=== PATIENT | female | born 1960 | race Caucasian/White ===

== ENCOUNTER 2017-06-15 06:38 | Day surgery (SDC) | payer OTHER ==
[2017-06-15] MEDS ORDERED: Propofol 200 MG/20 ML SDV ONE (06:55)
[2017-06-15] MEDS ORDERED: fentaNYL 100 MCG/2 ML SDV ONE (06:55)
[2017-06-15] MEDS ORDERED: Midazolam 1 MG/ML 2 ML SDV ONE (06:56)
[2017-06-15] MEDS ORDERED: Sodium Chloride 0.9% 1,000 ML IV SCH (07:00)
[2017-06-15] MEDS ORDERED: Ondansetron 4 MG/2 ML SDV ONE (07:56)
[2017-06-15 09:03] VITALS: BP 120/85
--- NOTE | 2017-06-15 09:20 | PROC ---
DATE OF PROCEDURE: 06/15/2017 INDICATION: Jennifer is a 57-year-old female who has had significant abdominal pain whenever she eats. The pain is severe enough where she wants to find out what is happening. The risks and benefits were explained to the patient and was taken to the OR. ANESTHESIA: Given by nurse portable machine cutter. PROCEDURE IN DETAIL: During the procedure, we used 2 mg of Versed, 2 mL of fentanyl, and 200 mg of propofol. The Olympus 180 scope was used and was placed into the pharynx and esophagus without difficulty and into the stomach, revealed no abnormality. The pylorus was identified, and the tube was advanced into the first and second part of the duodenum. Upon retraction of the tube, noted no duodenal erythema and no abnormality. The tube was brought back into the antrum area. There was mild erythema evident. Biopsy was done for Helicobacter pylori, Farida. We had good observation of the greater and lesser curvature. Then, the tube was retroflexed into the fundus, which revealed no abnormalities. Air was withdrawn from the stomach. The GE junction was identified. We closely observed the mucosa of the esophagus, which was unremarkable, and the vocal cords moved symmetrically. The tube was removed, and the patient tolerated the procedure well. PREOPERATIVE DIAGNOSIS: Abdominal pain. POSTOPERATIVE DIAGNOSIS: Mild antral mucosa erythema. Biopsy pending for Helicobacter pylori. PLAN: I will speak to the patient in the office once the biopsy report is completed. Sacha Gross MD /[id number]
== END 2017-06-15 09:30 | disposition home or self-care (01) ==
LOC: JP.SDS 06:38
PROVIDERS: ATTEND Internal Medicine
DX: K31.89 Other diseases of stomach and duodenum (principal)
CPT/HCPCS: 43239; 87081; J2250; J2405; J2704; J3010; J7040

== ENCOUNTER 2017-07-21 10:43 | Emergency (ER) | payer OTHER ==
[2017-07-21 11:03] VITALS: BP 152/82
[2017-07-21] MEDS ORDERED: Alum Hydrox/Mag Hydrox/Simeth 15 ML, Lidocaine 2% 15 ML PO ONE ×2 (11:04)
--- NOTE | 2017-07-21 12:06 | EDM.PDOC ---
ED HPI GENERAL MEDICAL PROBLEM - General Chief Complaint: Abdominal Pain Stated Complaint: UPPER STOMACH PAIN Time Seen by Provider: 07/21/17 10:57 Source of Information: Reports: Patient History Limitations: Reports: No Limitations - History of Present Illness INITIAL COMMENTS - FREE TEXT/NARRATIVE: Had acute onset of epigastric pain this morning after getting up drinking some coffee and tea. Describes the pain as burning, without radiation, Tried some gasex without relief. She has been seen previously for this having had an EGD last month showing mild gastritis. Recent CT of abdomen was normal. Currently taking nexium daily. Denies N/V. Having regular bowel movements Onset: Today, Sudden Location: Reports: Abdomen Quality: Reports: Burning Improves with: Reports: None Mid-Anterior Abdomen Pain Score (Numeric/FACES): 4 - Related Data Allergies Allergy/AdvReac Type Severity Reaction Status Date / Time bupropion HCl Allergy Hives Verified 07/21/17 11:03 [From Wellbutrin] Sulfa (Sulfonamide AdvReac Hives Verified 07/21/17 11:03 Antibiotics) Home Meds: Home Meds Omeprazole 20 mg PO DAILY 03/14/15 [History] Sertraline [Zoloft] 100 mg PO DAILY 03/14/15 [History] Cyclobenzaprine [Flexeril] 10 mg PO Q8H PRN #0 tablet 05/15/16 [Rx] Ondansetron [Zofran ODT] 4 mg PO Q4H PRN #30 tab.dis 05/15/16 [Rx] metroNIDAZOLE [Metronidazole] 500 mg PO TID PRN 06/11/17 [History] Sucralfate [Carafate] 1 gm PO ACBED 30 Days #120 tab 07/21/17 [Rx] Past Medical History HEENT History: Reports: Impaired Vision Respiratory History: Reports: Sleep Apnea Gastrointestinal History: Reports: Diverticulosis Genitourinary History: Reports: None 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: Musculoskeletal History: Reports: Fracture Psychiatric History: Reports: Depression Endocrine/Metabolic History: Reports: Obesity/BMI 30+ - Infectious Disease History Infectious Disease History: Reports: Chicken Pox - Past Surgical History HEENT Surgical History: Reports: LASIK GI Surgical History: Reports: Colon, Colonoscopy, Hernia, Abdominal, Hernia Repair/Other Female Surgical History: Reports: Breast Reduction, Tubal Ligation Endocrine Surgical History: Reports: None Musculoskeletal Surgical History: Reports: None Social & Family History - Family History Cardiac: Reports: Hypertension Respiratory: Reports: Sleep Apnea : Reports: Diabetic Nephropathy OBGYN: Reports: Musculoskeletal: Reports: Arthritis Endocrine/Metabolic: Reports: Diabetes, Type I - Tobacco Use Smoking Status *Q: Unknown Ever Smoked Years of Tobacco use: 10 Packs/Tins Daily: 1 Used Tobacco, but Quit: Yes Month Tobacco Last Used: 2006 Second Hand Smoke Exposure: No - Caffeine Use Caffeine Use: Reports: Coffee, Soda, Tea - Alcohol Use Days Per Week of Alcohol Use: 0 - Recreational Drug Use Recreational Drug Use: No ED ROS GENERAL - Review of Systems Review Of Systems: See Below Constitutional: Reports: No Symptoms HEENT: Reports: No Symptoms Respiratory: Reports: No Symptoms Cardiovascular: Reports: No Symptoms GI/Abdominal: Reports: Abdominal Pain, Decreased Appetite, Distension. Denies: Black Stool, Bloody Stool, Constipation, Diarrhea, Hematemesis, Hematochezia, Melena, Nausea, Vomiting : Reports: No Symptoms Musculoskeletal: Reports: No Symptoms Skin: Reports: No Symptoms ED EXAM, GI/ABD - Physical Exam Exam: See Below Exam Limited By: No Limitations General Appearance: Alert, Anxious, Mild Distress Respiratory/Chest: No Respiratory Distress, Lungs Clear, Normal Breath Sounds Cardiovascular: Normal Peripheral Pulses, Regular Rate, Rhythm, No Edema, No Murmur GI/Abdominal Exam: Soft, Tender (ove mid-epigastric area). No: Guarding, Rebound Course - Vital Signs Last Recorded V/S: Last Vital Signs Temp 36.8 C 07/21/17 10:54 Pulse 90 07/21/17 10:54 Resp 18 07/21/17 10:54 BP 152/82 H 07/21/17 10:54 Pulse Ox 98 07/21/17 10:54 - Orders/Labs/Meds Meds: Medications Discontinued Medications Generic Name Dose Route Start Last Admin Trade Name Freq PRN Reason Stop Dose Admin Al Hydroxide/Mg Hydroxide 15 0 ml 07/21/17 11:04 07/21/17 11:15 ml/ Lidocaine HCl 15 ml PO 07/21/17 11:05 30 ml ONETIME ONE Administration Departure - Departure Time of Disposition: 12:06 Disposition: Home, Self-Care 01 Clinical Impression: Acute gastritis without bleeding Qualifiers: Gastritis type: unspecified gastritis Qualified Code(s): K29.00 - Acute gastritis without bleeding - Discharge Information Referrals: Sacha Gross Sr, MD [Primary Care Provider] - - Assessment/Plan Assessment:: Seen shortly after admit with acute epigastric pain after drinking coffee. Has had recent work-up with previous EGD and CT of abdomen, showing mild gastritis. She was given a GI cocktail with relief of symptoms. Likely has ongoing gastritis. No signs of bleeding Plan: Will discharge to home and will start on carafate. 4 times daily. Continue nexium. Should follow-up with her PMD if not improving
== END 2017-07-21 12:32 | disposition home or self-care (01) ==
LOC: JP.ED 10:43
DX: K29.00 Acute gastritis without bleeding (principal); F32.9 Major depressive disorder, single episode, unspecified; Z79.899 Other long term (current) drug therapy; Z88.8 Allergy status to other drugs, medicaments and biological substances; Z88.2 Allergy status to sulfonamides
CPT/HCPCS: 99284; A9270

== ENCOUNTER 2017-09-07 07:10 | Emergency (ER) | payer OTHER ==
[2017-09-07] MEDS ORDERED: Aluminum Hydroxide/Magnesium Hydroxide/Simethicone Susp 30 ML Cup ONE (07:22)
[2017-09-07] MEDS ORDERED: Lidocaine 2% Viscous Solution 15 ML Cup ONE (07:22)
[2017-09-07] MEDS ORDERED: Aluminum Hydroxide/Magnesium Hydroxide/Simethicone Susp 30 ML Cup PO ONE (07:45)
[2017-09-07] MEDS ORDERED: Lidocaine 2% Viscous Solution 15 ML Cup PO ONE (07:45)
[2017-09-07] MEDS ORDERED: Pantoprazole 40 MG Vial IVPUSH ONE (07:50)
[2017-09-07] MEDS ORDERED: Pantoprazole 40 MG Vial ONE (07:55)
--- NOTE | 2017-09-08 08:25 | CR ---
Chest 1V Frontal HISTORY: CHEST PAIN COMPARISON: 04/11/2015 FINDINGS: Portable chest, 0726 hours. Lungs appear clear and normally aerated. Cardiomediastinal silhouette is within normal limits. No vas cular redistribution or pleural fluid can be seen. Bony structures and soft tissues are unremarkable. IMPRESSION: No acute chest abnormality is identified.
[2017-09-08 12:45] VITALS: BP 148/97
== END 2017-09-07 08:55 | disposition home or self-care (01) ==
LOC: JP.ED 07:10
DX: K21.9 Gastro-esophageal reflux disease without esophagitis (principal); Z88.2 Allergy status to sulfonamides; Z88.8 Allergy status to other drugs, medicaments and biological substances; Z79.899 Other long term (current) drug therapy
CPT/HCPCS: 36415; 71010; 80053; 82550; 83690; 84484; 85025; 96374; 99284; A9270; C9113; 93005

== ENCOUNTER 2017-09-08 17:49 | Inpatient (IN) | payer OTHER ==
[2017-09-08] MEDS ORDERED: Ondansetron 4 MG/2 ML SDV ONE (17:58)
[2017-09-08] MEDS: Ondansetron 4 MG/2 ML SDV IVPUSH ONE ×2 (18:04→20:15)
[2017-09-08] MEDS ORDERED: HYDROmorphone 1 MG/ML Syringe IVPUSH ONE (18:06)
[2017-09-08] MEDS ORDERED: Sodium Chloride 0.9% 1,000 ML IV SCH (18:15)
--- NOTE | 2017-09-08 18:44 | EDM.PDOC ---
ED HPI GENERAL MEDICAL PROBLEM - General Chief Complaint: Chest Pain Stated Complaint: NAUSEA / VOMITING Time Seen by Provider: 09/08/17 18:05 Source of Information: Reports: Patient, Family History Limitations: Reports: No Limitations - History of Present Illness INITIAL COMMENTS - FREE TEXT/NARRATIVE: 57-year-old female who has been bothered with recurring abdominal pain for the past several months, a gastroscopy was negative 2 months ago. She has been in the emergency room to times in the last week with increased epigastric pain, workups have been basically negative and the ongoing diagnosis is perceived to be gastritis. Today she had some soup and a small lunch at known and redeveloped pain around 2:30, its been worsening all day. She's also developed persistent nausea and vomiting. She had a normal bowel movement this morning, no fevers or chills, no radiation of pain to her back. No urinary symptoms. Onset: Gradual Duration: Hour(s): (6 hours) Location: Reports: Abdomen Quality: Reports: Pressure, Stabbing Severity: Moderate Improves with: Reports: None (Tried Pepto-Bismol and antacids, no relief) Associated Symptoms: Reports: Loss of Appetite, Nausea/Vomiting. Denies: Chest Pain, Cough, Diaphoresis, Fever/Chills, Headaches, Shortness of Breath, Weakness Treatments SHIPPING HAND: Reports: Other (see below) (Also is taking daily Nexium) Middle Epigastric Pain Score (Numeric/FACES): 5 - Related Data Allergies Allergy/AdvReac Type Severity Reaction Status Date / Time bupropion HCl Allergy Hives Verified 09/08/17 20:52 [From Wellbutrin] Sulfa (Sulfonamide AdvReac Hives Verified 09/08/17 20:52 Antibiotics) Home Meds: Home Meds Ondansetron [Zofran ODT] 4 mg PO Q4H PRN #30 tab.dis 05/15/16 [Rx] Esomeprazole Magnesium [Nexium] 10 mg PO DAILY 09/08/17 [History] QUEtiapine [SEROquel] 25 mg PO DAILY 09/08/17 [History] Sucralfate [Carafate] 1 gm PO QID 09/08/17 [History] Past Medical History HEENT History: Reports: Impaired Vision Respiratory History: Reports: Sleep Apnea Gastrointestinal History: Reports: Diverticulosis Genitourinary History: Reports: 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: Musculoskeletal History: Reports: Fracture Psychiatric History: Reports: Depression Endocrine/Metabolic History: Reports: Obesity/BMI 30+ - Infectious Disease History Infectious Disease History: Reports: Chicken Pox - Past Surgical History HEENT Surgical History: Reports: LASIK GI Surgical History: Reports: Colon, Colonoscopy, Hernia, Abdominal, Hernia Repair/Other Female Surgical History: Reports: Breast Reduction, Tubal Ligation Social & Family History - Family History Cardiac: Reports: Hypertension Respiratory: Reports: Sleep Apnea : Reports: Diabetic Nephropathy OBGYN: Reports: Musculoskeletal: Reports: Arthritis Endocrine/Metabolic: Reports: Diabetes, Type I - Tobacco Use Smoking Status *Q: Unknown Ever Smoked Years of Tobacco use: 10 Packs/Tins Daily: 1 Used Tobacco, but Quit: Yes Month Tobacco Last Used: 2006 Second Hand Smoke Exposure: No - Caffeine Use Caffeine Use: Reports: Coffee, Soda, Tea - Alcohol Use Days Per Week of Alcohol Use: 0 - Recreational Drug Use Recreational Drug Use: No ED ROS GENERAL - Review of Systems Review Of Systems: See Below Constitutional: Reports: Malaise. Denies: Fever, Chills HEENT: Reports: No Symptoms Respiratory: Denies: Shortness of Breath, Cough Cardiovascular: Denies: Chest Pain GI/Abdominal: Reports: Abdominal Pain, Nausea, Vomiting. Denies: Diarrhea : Reports: No Symptoms Skin: Reports: No Symptoms Neurological: Denies: Headache ED EXAM, GENERAL - Physical Exam Exam: See Below Exam Limited By: No Limitations General Appearance: Alert, Moderate Distress (Patient is very uncomfortable, writhing in pain and having difficulty communicating as well as actively nauseated and vomiting) Eye Exam: Bilateral Eye: EOMI, Normal Inspection (No jaundice) Respiratory/Chest: No Respiratory Distress, Lungs Clear Cardiovascular: Regular Rate, Rhythm GI/Abdominal: Tender (Patient is extremely tender to palpation across the right abdomen, especially the right upper quadrant down into the right lower quadrant) , Abnormal Bowel Sounds (Bowel sounds are hypoactive) Neurological: Alert, Oriented Psychiatric: Tearful Skin Exam: Warm, Dry Course - Vital Signs Last Recorded V/S: Last Vital Signs Temp 98.6 F 09/08/17 20:18 Pulse 89 09/08/17 20:18 Resp 18 09/08/17 20:18 BP 156/90 H 09/08/17 20:18 Pulse Ox 94 L 09/08/17 20:18 - Orders/Labs/Meds Orders: Active Orders 24 hr Category Date Time Status EKG Documentation Completion [RC] ASDIRECTED Care 09/08/17 18:06 Active Abdomen Pelvis w Cont [CT] Stat Exams 09/08/17 18:33 Taken Iopamidol [Isovue-300 (61%)] Med 09/08/17 19:00 Active 150 ml IV . DIRECTED Sodium Chloride 0.9% [Normal Saline] 1,000 ml Med 09/08/17 18:15 Active IV ASDIRECTED Sodium Chloride 0.9% [Normal Saline] 80 ml Med 09/08/17 19:00 Active IV ASDIRECTED Sodium Chloride 0.9% [Saline Flush] Med 09/08/17 18:51 Active 10 ml FLUSH ASDIRECTED PRN EKG 12 Lead [EK] Routine Ther 09/08/17 18:06 Ordered Medication Orders Hydromorphone HCl (Dilaudid Construction Technician 15 Mg In Ns 30 Ml) 15 mg IV ASDIRECTED PERRY PRN Reason: Protocol Sodium Chloride (Normal Saline) 1,000 mls @ 500 mls/hr IV ASDIRECTED [facility] [place] Last Admin: 09/08/17 18:28 Dose: 500 mls/hr Sodium Chloride (Normal Saline) 80 mls @ 3 mls/sec IV ASDIRECTED PERRY Last Admin: 09/08/17 19:07 Dose: 3 mls/sec Lactated Ringer's (Ringers, Lactated) 1,000 mls @ 125 mls/hr IV ASDIRECTED PERRY Iopamidol (Isovue-300 (61%)) 150 ml IV . DIRECTED [facility] [place] Last Admin: 09/08/17 19:07 Dose: 150 ml Sodium Chloride (Saline Flush) 10 ml FLUSH ASDIRECTED PRN PRN Reason: Keep Vein Open Last Admin: 09/08/17 19:07 Dose: 10 ml Labs: Laboratory Tests 09/08/17 09/08/17 Range/Units 18:20 18:20 WBC 9.5 (4.5-11.0) K/uL RBC 5.32 (3.30-5.50) M/uL Hgb 14.9 (12.0-15.0) g/dL Hct 43.6 (36.0-48.0) % MCV 82 (80-98) fL MCH 28 (27-31) pg MCHC 34 (32-36) % Plt Count 278 (150-400) K/uL Neut % (Auto) 83 H (36-66) % Lymph % (Auto) 12 L (24-44) % [place] % (Auto) 4 (2-6) % Eos % (Auto) 2 (2-4) % Baso % (Auto) 0 (0-1) % Sodium 140 (140-148) mmol/L Potassium 3.7 (3.6-5.2) mmol/L Chloride 101 (100-108) mmol/L Carbon Dioxide 24 (21-32) mmol/L Anion Gap 15.5 H (5.0-14.0) mmol/L BUN 15 (7-18) mg/dL Creatinine 1.0 (0.6-1.0) mg/dL Est Cr Clr Drug Dosing 53.60 mL/min Estimated GFR (MDRD) 57 L (>60) Glucose 141 H (74-106) mg/dL Calcium 9.5 (8.5-10.1) mg/dL Total Bilirubin 0.7 (0.2-1.0) mg/dL AST 53 H (15-37) U/L ALT 82 H (12-78) U/L Alkaline Phosphatase 50 (46-116) U/L Total Protein 8.3 H (6.4-8.2) g/dL Albumin 4.2 (3.4-5.0) g/dL Globulin 4.1 H (2.3-3.5) g/dL Albumin/Globulin Ratio 1.0 L (1.2-2.2) Amylase 51 (25-115) U/L Lipase 152 (73-393) U/L Meds: Medications Generic Name Dose Route Start Last Admin Trade Name Freq PRN Reason Stop Dose Admin Hydromorphone HCl 15 mg 09/08/17 21:00 Dilaudid Construction Technician 15 Mg In Ns 30 Ml IV ASDIRECTED PERRY Protocol Sodium Chloride 1,000 mls @ 500 mls/hr 09/08/17 18:15 09/08/17 18:28 Normal Saline IV 500 mls/hr ASDIRECTED PERRY Administration Sodium Chloride 80 mls @ 3 mls/sec 09/08/17 19:00 09/08/17 19:07 Normal Saline IV 3 mls/sec ASDIRECTED PERRY Administration Lactated Ringer's 1,000 mls @ 125 mls/hr 09/08/17 21:00 Ringers, Lactated IV ASDIRECTED PERRY Iopamidol 150 ml 09/08/17 19:00 09/08/17 19:07 Isovue-300 (61%) IV 150 ml . DIRECTED PERRY Administration Sodium Chloride 10 ml 09/08/17 18:51 09/08/17 19:07 Saline Flush FLUSH 10 ml ASDIRECTED PRN Administration Keep Vein Open Discontinued Medications Generic Name Dose Route Start Last Admin Trade Name Freq PRN Reason Stop Dose Admin Hydromorphone HCl 1 mg 09/08/17 18:06 09/08/17 18:15 Dilaudid IVPUSH 09/08/17 18:07 1 mg ONETIME ONE Administration Hydromorphone HCl 0.5 mg 09/08/17 20:06 09/08/17 20:13 Dilaudid IVPUSH 09/08/17 20:07 0.5 mg ONETIME ONE Administration Ondansetron HCl 4 mg 09/08/17 17:58 09/08/17 20:15 Zofran IVPUSH 09/08/17 17:59 Not Given ONETIME ONE Ondansetron HCl Confirm 09/08/17 17:58 09/08/17 20:15 Zofran Administered 09/08/17 17:59 Not Given Dose 4 mg .ROUTE .[facility] ONE - Re-Assessments/Exams Free Text/Narrative Re-Assessment/Exam: 09/08/17 18:43 An IV was started, the patient was given 4 mg of Zofran and 1 mg of IV Dilaudid. This improved her symptoms but she was still really tender to palpation. CBC, CMP, amylase and lipase were reordered but the patient will also be put through the CT scan of the abdomen and pelvis with IV contrast. 09/08/17 20:38 CT confirmed several ventral hernias, the smaller hernia appears to be partially incarcerated with inflammatory response and partial small bowel obstruction. This was discussed with Dr. Aime Sneed, and also Dr. Gross her primary care provider and she will be admitted for symptom control, and ultimately surgical consultation and treatment Departure - Departure Time of Disposition: 21:27 Disposition: Admitted As Inpatient 66 Condition: Fair Clinical Impression: Incarcerated hernia of abdominal cavity, Small bowel obstruction, partial - Discharge Information - My Orders Last 24 Hours: My Active Orders 09/08/17 18:06 EKG Documentation Completion [RC] ASDIRECTED EKG 12 Lead [EK] Routine 09/08/17 18:15 Sodium Chloride 0.9% [Normal Saline] 1,000 ml IV ASDIRECTED 09/08/17 18:33 Abdomen Pelvis w Cont [CT] Stat 09/08/17 18:51 Sodium Chloride 0.9% [Saline Flush] 10 ml FLUSH ASDIRECTED PRN 09/08/17 19:00 Iopamidol [Isovue-300 (61%)] 150 ml IV . DIRECTED Sodium Chloride 0.9% [Normal Saline] 80 ml IV ASDIRECTED - Assessment/Plan Last 24 Hours: My Active Orders 09/08/17 18:06 EKG Documentation Completion [RC] ASDIRECTED EKG 12 Lead [EK] Routine 09/08/17 18:15 Sodium Chloride 0.9% [Normal Saline] 1,000 ml IV ASDIRECTED 09/08/17 18:33 Abdomen Pelvis w Cont [CT] Stat 09/08/17 18:51 Sodium Chloride 0.9% [Saline Flush] 10 ml FLUSH ASDIRECTED PRN 09/08/17 19:00 Iopamidol [Isovue-300 (61%)] 150 ml IV . DIRECTED Sodium Chloride 0.9% [Normal Saline] 80 ml IV ASDIRECTED
[2017-09-08] MEDS ORDERED: Sodium Chloride 0.9% 10 ML Syringe FLUSH PRN (18:51)
[2017-09-08] MEDS ORDERED: Sodium Chloride 0.9% 80 ML IV SCH (19:00)
[2017-09-08] MEDS ORDERED: Iopamidol 612 MG/ML 150 ML Bottle IV SCH (19:00)
[2017-09-08] MEDS ORDERED: HYDROmorphone 0.5 MG/0.5 ML Syringe IVPUSH ONE (20:06)
--- NOTE | 2017-09-08 20:41 | PCM.HP ---
H&P History of Present Illness - General Date of Service: 09/08/17 Source of Information: Patient, EMS, Family History Limitations: Reports: No Limitations - History of Present Illness Initial Comments - Free Text/Narative: Has been n and vomiting today with severe abd. pain and came to the ER. Upon CT showed hernias which need to be repaired as she has an obstruction unable to hold down food. The pain level is 10/10. pain is dull and cramping. Onset of Symptoms: Reports: Gradual, Other (worse today with vomiting.) Improves with: Reports: Movement Worsens with: Reports: Eating Associated Symptoms: Reports: Nausea/Vomiting Middle Epigastric Pain Score (Numeric/FACES): 4 - Related Data Allergies/Adverse Reactions: Allergies Allergy/AdvReac Type Severity Reaction Status Date / Time bupropion HCl Allergy Hives Verified 09/08/17 18:05 [From Wellbutrin] Sulfa (Sulfonamide AdvReac Hives Verified 09/08/17 18:05 Antibiotics) Home Medications: Home Meds Ondansetron [Zofran ODT] 4 mg PO Q4H PRN #30 tab.dis 05/15/16 [Rx] Esomeprazole Magnesium [Nexium] 10 mg PO DAILY 09/08/17 [History] QUEtiapine [SEROquel] 25 mg PO DAILY 09/08/17 [History] Sucralfate [Carafate] 1 gm PO QID 09/08/17 [History] Past Medical History HEENT History: Reports: Impaired Vision Respiratory History: Reports: Sleep Apnea Gastrointestinal History: Reports: Diverticulosis Genitourinary History: Reports: None [employer]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: Musculoskeletal History: Reports: Fracture Psychiatric History: Reports: Depression Endocrine/Metabolic History: Reports: Obesity/BMI 30+ - Infectious Disease History Infectious Disease History: Reports: Chicken Pox - Past Surgical History HEENT Surgical History: Reports: LASIK GI Surgical History: Reports: Colon, Colonoscopy, Hernia, Abdominal, Hernia Repair/Other Female Surgical History: Reports: Breast Reduction, Tubal Ligation Social & Family History - Family History Cardiac: Reports: Hypertension Respiratory: Reports: Sleep Apnea : Reports: Diabetic Nephropathy OBGYN: Reports: Musculoskeletal: Reports: Arthritis Endocrine/Metabolic: Reports: Diabetes, Type I - Tobacco Use Smoking Status *Q: Unknown Ever Smoked Years of Tobacco use: 10 Packs/Tins Daily: 1 Used Tobacco, but Quit: Yes Month Tobacco Last Used: 2006 Second Hand Smoke Exposure: No - Caffeine Use Caffeine Use: Reports: Coffee, Soda, Tea - Alcohol Use Days Per Week of Alcohol Use: 0 - Recreational Drug Use Recreational Drug Use: No H&P Review of Systems - Review of Systems: Review Of Systems: See Below General: Reports: Weakness HEENT: Reports: No Symptoms Pulmonary: Reports: No Symptoms Cardiovascular: Reports: No Symptoms Gastrointestinal: Reports: Abdominal Pain, Difficulty Swallowing, Distension Genitourinary: Reports: No Symptoms Musculoskeletal: Reports: No Symptoms Skin: Reports: No Symptoms Psychiatric: Reports: No Symptoms Neurological: Reports: No Symptoms Exam - Exam Exam: See Below - Vital Signs Vital Signs: Last Vital Signs Temp 98.6 F 09/08/17 20:18 Pulse 89 09/08/17 20:18 Resp 18 09/08/17 20:18 BP 156/90 H 09/08/17 20:18 Pulse Ox 94 L 09/08/17 20:18 Weight: 230 lb - Exam General: Alert, Oriented, 4 HEENT: PERRLA, Hearing Intact, Mucosa Moist & [place], Nares Patent, Normal Nasal Septum, Posterior Pharynx Clear, Conjunctiva Clear, EOMI, EACs Clear, TMs Clear Neck: Supple, Trachea Midline, 2 Lungs: Clear to Auscultation, Normal Respiratory Effort Cardiovascular: Regular Rate, Regular Rhythm GI/Abdominal Exam: Tender, Abnormal Bowel Sounds Peripheral Pulses: 1+: Radial (L), Radial (R) Skin: Warm, Dry, Intact Neuro Extensive - Mental Status: Alert, Oriented x3 Neuro Extensive - Motor, Sensory, Reflexes: CN II-XII Intact DTR: 1+: Bicep (R), Tricep (L) Psychiatric: Alert, Normal Affect, Normal Mood - Patient Data Lab Results Last 24 hrs: Laboratory Results - last 24 hr 09/08/17 09/08/17 Range/Units 18:20 18:20 WBC 9.5 (4.5-11.0) K/uL RBC 5.32 (3.30-5.50) M/uL Hgb 14.9 (12.0-15.0) g/dL Hct 43.6 (36.0-48.0) % MCV 82 (80-98) fL MCH 28 (27-31) pg MCHC 34 (32-36) % Plt Count 278 (150-400) K/uL Neut % (Auto) 83 H (36-66) % Lymph % (Auto) 12 L (24-44) % [place] % (Auto) 4 (2-6) % Eos % (Auto) 2 (2-4) % Baso % (Auto) 0 (0-1) % Sodium 140 (140-148) mmol/L Potassium 3.7 (3.6-5.2) mmol/L Chloride 101 (100-108) mmol/L Carbon Dioxide 24 (21-32) mmol/L Anion Gap 15.5 H (5.0-14.0) mmol/L BUN 15 (7-18) mg/dL Creatinine 1.0 (0.6-1.0) mg/dL Est Cr Clr Drug Dosing 53.60 mL/min Estimated GFR (MDRD) 57 L (>60) Glucose 141 H (74-106) mg/dL Calcium 9.5 (8.5-10.1) mg/dL Total Bilirubin 0.7 (0.2-1.0) mg/dL AST 53 H (15-37) U/L ALT 82 H (12-78) U/L Alkaline Phosphatase 50 (46-116) U/L Total Protein 8.3 H (6.4-8.2) g/dL Albumin 4.2 (3.4-5.0) g/dL Globulin 4.1 H (2.3-3.5) g/dL Albumin/Globulin Ratio 1.0 L (1.2-2.2) Amylase 51 (25-115) U/L Lipase 152 (73-393) U/L Result Diagrams: 09/08/17 18:20 09/08/17 18:20 *Q Meaningful Use (ADM) - VTE *Q VTE Criteria *Q: - Stroke *Q Stroke Criteria *Q: - AMI *Q AMI Criteria *Q: Problem List Initiated/Reviewed/Updated: Yes Orders Last 24hrs: Active Orders 24 hr Category Date Time Status EKG Documentation Completion [RC] ASDIRECTED Care 09/08/17 18:06 Active Abdomen Pelvis w Cont [CT] Stat Exams 09/08/17 18:33 Taken Iopamidol [Isovue-300 (61%)] Med 09/08/17 19:00 Active 150 ml IV . DIRECTED Sodium Chloride 0.9% [Normal Saline] 1,000 ml Med 09/08/17 18:15 Active IV ASDIRECTED Sodium Chloride 0.9% [Normal Saline] 80 ml Med 09/08/17 19:00 Active IV ASDIRECTED Sodium Chloride 0.9% [Saline Flush] Med 09/08/17 18:51 Active 10 ml FLUSH ASDIRECTED PRN EKG 12 Lead [EK] Routine Ther 09/08/17 18:06 Ordered Medication Orders Sodium Chloride (Normal Saline) 1,000 mls @ 500 mls/hr IV ASDIRECTED PERRY Last Admin: 09/08/17 18:28 Dose: 500 mls/hr Sodium Chloride (Normal Saline) 80 mls @ 3 mls/sec IV ASDIRECTED PERRY Last Admin: 09/08/17 19:07 Dose: 3 mls/sec Iopamidol (Isovue-300 (61%)) 150 ml IV . DIRECTED PERRY Last Admin: 09/08/17 19:07 Dose: 150 ml Sodium Chloride (Saline Flush) 10 ml FLUSH ASDIRECTED PRN PRN Reason: Keep Vein Open Last Admin: 09/08/17 19:07 Dose: 10 ml Assessment/Plan Comment:: Assessment?plan; #1. Abd. Wall hernia with obstruction. Dr. Sneed will see her in the morning and repair the hernia. #2. Depression: Continue with Seroquel. #3. Obesity Liver functions are up. WBC normal. I feel she will be medically stable fot the planned procedure.
[2017-09-08] MEDS ORDERED: Lactated Ringers 1,000 ML IV SCH (21:00)
[2017-09-08] MEDS ORDERED: HYDROmorphone/Normal Saline 15 MG/30 ML PCA IV SCH (21:00)
[2017-09-08] MEDS: Dextrose 5%-Lactated Ringers 1,000 ML IV SCH (22:32)
[2017-09-09] MEDS: Dextrose 5%-Lactated Ringers 1,000 ML IV SCH ×3 (03:35→21:46)
[2017-09-09] MEDS ORDERED: Acetaminophen 500 MG Tab PO ONE (06:46)
[2017-09-09] MEDS ORDERED: HYDROmorphone/Normal Saline 15 MG/30 ML PCA IV PRN (07:24)
[2017-09-09] MEDS ORDERED: Naloxone 0.4 MG/ML SDV IV PRN (07:25)
--- NOTE | 2017-09-09 08:02 | PN ---
DATE OF SERVICE: 09/09/2017 SUBJECTIVE: Jennifer is a 57-year-old female who presented to the ER and was subsequently admitted for an incarcerated incisional hernia and partial small bowel obstruction. She reports her pain is controlled with the Dilaudid [employer]. She does have a headache this morning and was given 1000 mg of Tylenol p.o. with a sip of water. Currently reporting pain on a pain scale of 1-10 at 2/10. She has not had any further nausea or vomiting. REVIEW OF SYSTEMS: Remainder of review of systems is negative for any pertinent positives and negatives. OBJECTIVE: GENERAL: Jennifer mart is a 57-year-old female. VITAL SIGNS: Height is 5 feet 4 inches. Weight is 268 pounds. BMI is 46. TPR is 98.1, 82, 16, blood pressure 130/74. HEENT: Negative. NECK: Supple. HEART: Regular rate and rhythm. LUNGS: Clear. ABDOMEN: Midline large incisional hernia noted. Generalized tenderness. EXTREMITIES: SCDs are on and there is no peripheral edema. NEUROLOGICAL: Intact. SKIN: Warm and dry. Color pale. PSYCHIATRIC: Mood and affect appropriate. ASSESSMENT: 1. Recurrent incarcerated incisional hernia. 2. Partial small bowel obstruction. PLAN: 1. Schedule and have consent signed for exploratory laparotomy with repair of recurrent incarcerated incisional hernia with possible mesh and possible partial small bowel resection. General anesthesia. Case to follow 09/09/2017, Vic Sneed M.D. 2. Cefoxitin 2 g IV on-call to OR. 3. Dilaudid [employer] was increased to 3 mg. 4. Pharmacy was called to have TAP block, intraoperative ketamine, and lidocaine ready for intraoperative administration. The patient is to remain n.p.o. We will evaluate p.r.n. or in a.m. 5. Orders to be written postoperatively. Marta Bee PA-C /[id number]
--- NOTE | 2017-09-09 09:47 | PCM.PN ---
- General Info Date of Service: 09/09/17 Functional Status: Reports: Pain Controlled - Review of Systems General: Reports: Weakness HEENT: Reports: No Symptoms Pulmonary: Reports: No Symptoms Cardiovascular: Reports: No Symptoms Gastrointestinal: Reports: Abdominal Pain Genitourinary: Reports: No Symptoms Musculoskeletal: Reports: No Symptoms Neurological: Reports: No Symptoms Psychiatric: Reports: No Symptoms - Patient Data Vitals - Most Recent: Last Vital Signs Temp 98 F 09/09/17 07:45 Pulse 72 09/09/17 07:45 Resp 12 09/09/17 07:45 BP 130/73 09/09/17 07:45 Pulse Ox 93 L 09/09/17 08:12 Weight - Most Recent: 268 lb 4 oz I&O - Last 24 Hours: Intake & Output 09/08/17 09/09/17 09/09/17 22:59 06:59 14:59 Intake Total 1098 Output Total 350 Balance 748 Lab Results Last 24 Hours: Laboratory Results - last 24 hr 09/09/17 09/09/17 09/09/17 Range/Units 04:50 04:50 05:23 WBC 7.8 (4.5-11.0) K/uL RBC 4.62 (3.30-5.50) M/uL Hgb 12.8 D (12.0-15.0) g/dL Hct 39.1 (36.0-48.0) % MCV 85 (80-98) fL MCH 28 (27-31) pg MCHC 33 (32-36) % Plt Count 244 (150-400) K/uL Neut % (Auto) 71 H (36-66) % Lymph % (Auto) 19 L (24-44) % [place] % (Auto) 9 H (2-6) % Eos % (Auto) 1 L (2-4) % Baso % (Auto) 0 (0-1) % Sodium 142 (140-148) mmol/L Potassium 4.1 (3.6-5.2) mmol/L Chloride 104 (100-108) mmol/L Carbon Dioxide 29 (21-32) mmol/L Anion Gap 9.5 (5.0-14.0) mmol/L BUN 12 (7-18) mg/dL Creatinine 0.9 (0.6-1.0) mg/dL Est Cr Clr Drug Dosing 59.55 mL/min Estimated GFR (MDRD) > 60 (>60) Glucose 128 H (74-106) mg/dL Calcium 8.5 (8.5-10.1) mg/dL Urine Color Yellow Urine Appearance Cloudy Urine pH 6.5 (4.5-8.0) Ur Specific [place] 1.015 (1.008-1.030) Urine Protein Negative (NEGATIVE) mg/dL Urine Glucose (UA) Normal (NEGATIVE) mg/dL Urine Ketones Negative (NEGATIVE) mg/dL Urine Occult Blood Negative (NEGATIVE) Urine Nitrite Negative (NEGATIVE) Urine Bilirubin Small (NEGATIVE) Urine Urobilinogen 1 (NORMAL) mg/dL Ur Leukocyte Esterase Negative (NEGATIVE) Urine RBC 0-5 (0-5) Urine WBC 0-5 (0-5) Ur Epithelial Cells Few Amorphous Sediment Many Urine Bacteria Many Urine Mucus Not seen Med Orders - Current: Current Medications Ropivacaine 60 ml/Dexamethasone 8 mg/Epinephrine HCl 0.4 mg/ Sodium Chloride 17.6 ml 0 ml NERVRT ONETIME ONE Stop: 09/09/17 11:01 Hydromorphone HCl (Dilaudid Counseling Department Chair 15 Mg In Ns 30 Ml) 0 mg IV ASDIRECTED PRN; Protocol PRN Reason: PAIN Dextrose/Lactated Ringer's (Dextrose 5%-Lactated Ringers) 1,000 mls @ 150 mls/ hr IV ASDIRECTED [facility] Last Admin: 09/09/17 03:35 Dose: 150 mls/hr Lidocaine HCl/Dextrose (Lidocaine 2 Gm/D5w 500 Ml) 2 gm in 500 mls @ 30 mls/hr IV .[id number] [facility] PRN Reason: 2 MG/MIN Ketamine HCl 100 mg/ Sodium (Chloride) 100 mls @ 16 mls/hr IV ASDIRECTED [facility] Stop: 09/09/17 13:00 Cefoxitin Sodium 2 gm/ Sodium (Chloride) 50 mls @ 100 mls/hr IV ONCALL ONE Stop: 09/09/17 11:29 Ketamine HCl (Ketalar) 27 mg IV ONETIME ONE Stop: 09/09/17 11:01 Lidocaine HCl (Xylocaine 2%) 122 mg IVPUSH ONETIME ONE Stop: 09/09/17 11:01 Naloxone HCl (Narcan) 0.1 mg IV ASDIRECTED PRN PRN Reason: decreased respiratory rate Ondansetron HCl (Zofran) 4 mg IVPUSH Q4H PRN PRN Reason: Nausea/Vomiting Discontinued Medications Acetaminophen (Tylenol Extra Strength) 1,000 mg PO NOW ONE Stop: 09/09/17 06:47 Last Admin: 09/09/17 06:55 Dose: 1,000 mg Hydromorphone HCl (Dilaudid) 1 mg IVPUSH ONETIME ONE Stop: 09/08/17 18:07 Last Admin: 09/08/17 18:15 Dose: 1 mg Hydromorphone HCl (Dilaudid) 0.5 mg IVPUSH ONETIME ONE Stop: 09/08/17 20:07 Last Admin: 09/08/17 20:13 Dose: 0.5 mg Hydromorphone HCl (Dilaudid Counseling Department Chair 15 Mg In Ns 30 Ml) 15 mg IV ASDIRECTED [facility] PRN Reason: Protocol Last Admin: 09/08/17 22:08 Dose: 15 mg Sodium Chloride (Normal Saline) 1,000 mls @ 500 mls/hr IV ASDIRECTED [facility] Last Admin: 09/08/17 18:28 Dose: 500 mls/hr Sodium Chloride (Normal Saline) 80 mls @ 3 mls/sec IV ASDIRECTED [facility] Last Admin: 09/08/17 19:07 Dose: 3 mls/sec Lactated Ringer's (Ringers, Lactated) 1,000 mls @ 125 mls/hr IV ASDIRECTED [facility] Iopamidol (Isovue-300 (61%)) 150 ml IV . DIRECTED [facility] Last Admin: 09/08/17 19:07 Dose: 150 ml Ondansetron HCl (Zofran) 4 mg IVPUSH ONETIME ONE Stop: 09/08/17 17:59 Last Admin: 09/08/17 20:15 Dose: Not Given Ondansetron HCl (Zofran) Confirm Administered Dose 4 mg .ROUTE .STK-MED ONE Stop: 09/08/17 17:59 Last Admin: 09/08/17 20:15 Dose: Not Given Sodium Chloride (Saline Flush) 10 ml FLUSH ASDIRECTED PRN PRN Reason: Keep Vein Open Last Admin: 09/08/17 19:07 Dose: 10 ml - Exam General: Alert, Oriented Lungs: Clear to Auscultation, Normal Respiratory Effort Cardiovascular: Regular Rate, Regular Rhythm GI/Abdominal Exam: Soft, Distended Extremities: Normal Inspection, Normal Range of Motion, Non-Tender, No Pedal Edema, Normal Capillary Refill - Problem List Review Problem List Initiated/Reviewed/Updated: Yes - My Orders Last 24 Hours: My Active Orders 09/08/17 21:30 Consult to Physician [CONS] Routine 09/08/17 21:32 Notify Provider Consults [RC] ASDIRECTED 09/08/17 22:42 Pulse Oximetry Continuous Monitoring [OM.PC] Routine 09/08/17 22:43 Overnight Pulse Oximetry [RC] Click to Edit 09/09/17 07:24 HYDROmorphone/Normal Saline [Dilaudid PRODUCTION [employer]ONE LEADER 15 MG in NS 30 ML] 0 mg IV ASDIRECTED PRN - Plan Plan:: Assessment?plan; #1. Abd. Wall hernia with obstruction. Dr. Sneed will do surgery today. #2. Depression: Continue with Seroquel. #3. Obesity Liver functions are up. WBC normal. I feel she is medically stable for the planned surgery.
[2017-09-09] MEDS ORDERED: fentaNYL 250 MCG/5 ML SDV ONE ×2 (10:05→16:02)
[2017-09-09] MEDS ORDERED: Dexamethasone 4 MG/ML SDV ONE (10:05)
[2017-09-09] MEDS ORDERED: Glycopyrrolate 0.2 MG/ML 5 ML MDV ONE (10:05)
[2017-09-09] MEDS ORDERED: Ondansetron 4 MG/2 ML SDV ONE (10:05)
[2017-09-09] MEDS ORDERED: Succinylcholine 200 MG/10 ML MDV ONE (10:05)
[2017-09-09] MEDS ORDERED: Propofol 200 MG/20 ML SDV ONE (10:05)
[2017-09-09] MEDS ORDERED: Neostigmine Methylsulfate 1 MG/ML 5 ML Syringe ONE (10:05)
[2017-09-09] MEDS ORDERED: Rocuronium 50 MG/5 ML Vial ONE ×2 (10:05→16:02)
[2017-09-09] MEDS ORDERED: Ropivacaine 60 ML, Dexamethasone 8 MG, EPINEPHrine 0.4 MG, Sodium Chloride 0.9% 17.6 ML NERVRT ONE ×4 (11:00)
[2017-09-09] MEDS ORDERED: Ketamine 500 MG/5 ML MDV IV ONE (11:00)
[2017-09-09] MEDS ORDERED: Lidocaine 2% 100 MG/5 ML Syringe IVPUSH ONE (11:00)
[2017-09-09] MEDS ORDERED: cefOXitin 2 GM in Sodium Chloride 0.9% 50 ML IV ONE (11:00)
[2017-09-09] MEDS ORDERED: Meropenem 500 MG SDV ONE (13:22)
[2017-09-09] MEDS ORDERED: Lactated Ringers 1,000 ML ONE ×2 (15:10→17:50)
[2017-09-09] MEDS ORDERED: Linezolid 200 MG/100 ML Bag IRR ONE (17:05)
[2017-09-09] MEDS ORDERED: Scopolamine 1.5 MG Transdermal Patch TOP ONE (20:00)
[2017-09-09] MEDS: Ondansetron 4 MG/2 ML SDV IVPUSH PRN (20:33)
[2017-09-09] MEDS: Lidocaine 0.4%/D5W 2 GM/500 ML BAG IV SCH (20:41)
[2017-09-09] MEDS: diphenhydrAMINE 50 MG/ML SDV IVPUSH PRN (21:46)
[2017-09-10] MEDS ORDERED: Dextrose 5%-Lactated Ringers 1,000 ML IV SCH (00:15)
[2017-09-10] MEDS ORDERED: hydrOXYzine HCl 100 MG/2 ML SDV IM PRN (00:28)
[2017-09-10] MEDS ORDERED: Cyclobenzaprine 10 MG Tab PO PRN (00:29)
[2017-09-10] MEDS ORDERED: Pantoprazole 40 MG Vial IVPUSH SCH (00:30)
[2017-09-10] MEDS: cefOXitin 2 GM in Sodium Chloride 0.9% 50 ML IV SCH ×4 (01:18→18:10)
[2017-09-10] MEDS: diphenhydrAMINE 50 MG/ML SDV IVPUSH PRN ×2 (02:16→11:16)
[2017-09-10] MEDS: Lidocaine 0.4%/D5W 2 GM/500 ML BAG IV SCH (07:37)
[2017-09-10] MEDS: Gabapentin 300 MG Cap PO SCH ×3 (08:57→21:17)
[2017-09-10] MEDS: QUEtiapine 25 MG Tab PO SCH (08:57)
[2017-09-10] MEDS: VERIFY SCOP PATCH TOP SCH (08:57)
[2017-09-10] MEDS: Dextrose 5%-Lactated Ringers 1,000 ML IV SCH ×2 (11:20→19:53)
--- NOTE | 2017-09-10 16:22 | PCM.PN ---
- General Info Date of Service: 09/10/17 Functional Status: Reports: Pain Controlled - Review of Systems General: Reports: Fever, Weakness HEENT: Reports: No Symptoms Pulmonary: Reports: No Symptoms Cardiovascular: Reports: No Symptoms Gastrointestinal: Reports: Abdominal Pain Genitourinary: Reports: No Symptoms Musculoskeletal: Reports: No Symptoms Skin: Reports: No Symptoms Neurological: Reports: No Symptoms Psychiatric: Reports: No Symptoms - Patient Data Vitals - Most Recent: Last Vital Signs Temp 100.7 F H 09/10/17 15:00 Pulse 82 09/10/17 15:00 Resp 18 09/10/17 15:00 BP 126/68 09/10/17 15:00 Pulse Ox 97 09/10/17 15:00 Weight - Most Recent: 268 lb 3.994 oz I&O - Last 24 Hours: Intake & Output 09/10/17 09/10/17 09/10/17 06:59 14:59 22:59 Intake Total 1788 60 Output Total 900 775 150 Balance 888 -715 -150 Lab Results Last 24 Hours: Laboratory Results - last 24 hr 09/10/17 09/10/17 Range/Units 04:15 04:15 WBC 9.5 (4.5-11.0) K/uL RBC 4.60 (3.30-5.50) M/uL Hgb 12.4 (12.0-15.0) g/dL Hct 39.6 (36.0-48.0) % MCV 86 (80-98) fL MCH 27 (27-31) pg MCHC 31 L (32-36) % Plt Count 252 (150-400) K/uL Sodium 140 (140-148) mmol/L Potassium 4.6 (3.6-5.2) mmol/L Chloride 104 (100-108) mmol/L Carbon Dioxide 28 (21-32) mmol/L Anion Gap 8.1 (5.0-14.0) mmol/L BUN 10 (7-18) mg/dL Creatinine 1.0 (0.6-1.0) mg/dL Est Cr Clr Drug Dosing 53.99 mL/min Estimated GFR (MDRD) 57 L (>60) Glucose 144 H (74-106) mg/dL Calcium 8.1 L (8.5-10.1) mg/dL Phosphorus 3.7 (2.5-4.9) mg/dL Magnesium 2.0 (1.8-2.4) mg/dL Total Bilirubin 0.6 (0.2-1.0) mg/dL AST 43 H (15-37) U/L ALT 67 (12-78) U/L Alkaline Phosphatase 28 L (46-116) U/L Total Protein 6.3 L (6.4-8.2) g/dL Albumin 3.1 L (3.4-5.0) g/dL Globulin 3.2 (2.3-3.5) g/dL Albumin/Globulin Ratio 1.0 L (1.2-2.2) Med Orders - Current: Current Medications Cyclobenzaprine HCl (Flexeril) 10 mg PO Q8H PRN PRN Reason: Muscle Spasm Diphenhydramine HCl (Benadryl) 25 - 50 mg IVPUSH Q4H PRN PRN Reason: Itching Last Admin: 09/10/17 11:16 Dose: 50 mg Gabapentin (Neurontin) 300 mg PO TID [facility] Last Admin: 09/10/17 14:41 Dose: 300 mg Hydromorphone HCl (Dilaudid [employer] Tractor Operator 15 Mg In Ns 30 Ml) 0 mg IV ASDIRECTED PRN; Protocol PRN Reason: PAIN Hydroxyzine HCl (Vistaril) 100 mg IM Q4H PRN PRN Reason: Pain Lidocaine HCl/Dextrose (Lidocaine 2 Gm/D5w 500 Ml) 2 gm in 500 mls @ 30 mls/hr IV .[id number] [facility] PRN Reason: 2 MG/MIN Stop: 09/10/17 18:00 Last Admin: 09/10/17 07:37 Dose: 0 mg/min, 30 mls/hr Cefoxitin Sodium 2 gm/ Sodium (Chloride) 50 mls @ 100 mls/hr IV Q6H [facility] Stop: 09/10/17 18:29 Last Admin: 09/10/17 11:16 Dose: 100 mls/hr Dextrose/Lactated Ringer's (Dextrose 5%-Lactated Ringers) 1,000 mls @ 100 mls/ hr IV ASDIRECTED [facility] Last Admin: 09/10/17 11:20 Dose: 100 mls/hr Naloxone HCl (Narcan) 0.1 mg IV ASDIRECTED PRN PRN Reason: decreased respiratory rate Verify Scop Patch 0 each TOP DAILY [facility] Last Admin: 09/10/17 08:57 Dose: Not Given Ondansetron HCl (Zofran) 4 mg IVPUSH Q4H PRN PRN Reason: Nausea/Vomiting Last Admin: 09/09/17 20:33 Dose: 4 mg Pantoprazole Sodium (Protonix Iv) 40 mg IVPUSH Q24H [facility] Quetiapine Fumarate (Seroquel) 25 mg PO DAILY [facility] Last Admin: 09/10/17 08:57 Dose: 25 mg Discontinued Medications Acetaminophen (Tylenol Extra Strength) 1,000 mg PO NOW ONE Stop: 09/09/17 06:47 Last Admin: 09/09/17 06:55 Dose: 1,000 mg Ropivacaine 60 ml/Dexamethasone 8 mg/Epinephrine HCl 0.4 mg/ Sodium Chloride 17.6 ml 0 ml NERVRT ONETIME ONE Stop: 09/09/17 11:01 Last Admin: 09/09/17 15:00 Dose: 100 syringe Dexamethasone (Dexamethasone) Confirm Administered Dose 4 mg .ROUTE .STK-MED ONE Stop: 09/09/17 10:06 Fentanyl (Sublimaze) Confirm Administered Dose 250 mcg .ROUTE .STK-MED ONE Stop: 09/09/17 10:06 Fentanyl (Sublimaze) Confirm Administered Dose 250 mcg .ROUTE .STK-MED ONE Stop: 09/09/17 16:03 Glycopyrrolate (Robinul) Confirm Administered Dose 1 mg .ROUTE .STK-MED ONE Stop: 09/09/17 10:06 Hydromorphone HCl (Dilaudid) 1 mg IVPUSH ONETIME ONE Stop: 09/08/17 18:07 Last Admin: 09/08/17 18:15 Dose: 1 mg Hydromorphone HCl (Dilaudid) 0.5 mg IVPUSH ONETIME ONE Stop: 09/08/17 20:07 Last Admin: 09/08/17 20:13 Dose: 0.5 mg Hydromorphone HCl (Dilaudid [employer] Operator 15 Mg In Ns 30 Ml) 15 mg IV ASDIRECTED [facility] PRN Reason: Protocol Last Admin: 09/08/17 22:08 Dose: 15 mg Sodium Chloride (Normal Saline) 1,000 mls @ 500 mls/hr IV ASDIRECTED [facility] Last Admin: 09/08/17 18:28 Dose: 500 mls/hr Sodium Chloride (Normal Saline) 80 mls @ 3 mls/sec IV ASDIRECTED [facility] Last Admin: 09/08/17 19:07 Dose: 3 mls/sec Lactated Ringer's (Ringers, Lactated) 1,000 mls @ 125 mls/hr IV ASDIRECTED [facility] Dextrose/Lactated Ringer's (Dextrose 5%-Lactated Ringers) 1,000 mls @ 150 mls/ hr IV ASDIRECTED [facility] Last Admin: 09/09/17 21:46 Dose: 150 mls/hr Ketamine HCl 100 mg/ Sodium (Chloride) 100 mls @ 16 mls/hr IV ASDIRECTED [facility] Stop: 09/09/17 13:00 Cefoxitin Sodium 2 gm/ Sodium (Chloride) 50 mls @ 100 mls/hr IV ONCALL ONE Stop: 09/09/17 11:29 Last Admin: 09/09/17 14:25 Dose: 100 mls/hr Lactated Ringer's (Ringers, Lactated) Confirm Administered Dose 1,000 mls @ as directed .ROUTE .STK-MED ONE Stop: 09/09/17 15:11 Lactated Ringer's (Ringers, Lactated) Confirm Administered Dose 1,000 mls @ as directed .ROUTE .STK-MED ONE Stop: 09/09/17 17:51 Dextrose/Lactated Ringer's (Dextrose 5%-Lactated Ringers) 1,000 mls @ 175 mls/ hr IV ASDIRECTED [facility] Last Admin: 09/10/17 04:59 Dose: 175 mls/hr Iopamidol (Isovue-300 (61%)) 150 ml IV . DIRECTED [facility] Last Admin: 09/08/17 19:07 Dose: 150 ml Ketamine HCl (Ketalar) 27 mg IV ONETIME ONE Stop: 09/09/17 11:01 Last Admin: 09/09/17 20:42 Dose: Not Given Lidocaine HCl (Xylocaine 2%) 122 mg IVPUSH ONETIME ONE Stop: 09/09/17 11:01 Last Admin: 09/09/17 20:41 Dose: Not Given Linezolid (Zyvox) 200 mg IRR .STK-MED ONE Stop: 09/09/17 17:06 Last Admin: 09/09/17 17:05 Dose: 200 mg Meropenem (Merrem) Confirm Administered Dose 500 mg .ROUTE .STK-MED ONE Stop: 09/09/17 13:23 Last Admin: 09/09/17 15:25 Dose: 500 mg Neostigmine Methylsulfate (Neostigmine) Confirm Administered Dose 5 mg .ROUTE .STK-MED ONE Stop: 09/09/17 10:06 Ondansetron HCl (Zofran) 4 mg IVPUSH ONETIME ONE Stop: 09/08/17 17:59 Last Admin: 09/08/17 20:15 Dose: Not Given Ondansetron HCl (Zofran) Confirm Administered Dose 4 mg .ROUTE .STK-MED ONE Stop: 09/08/17 17:59 Last Admin: 09/08/17 20:15 Dose: Not Given Ondansetron HCl (Zofran) Confirm Administered Dose 4 mg .ROUTE .STK-MED ONE Stop: 09/09/17 10:06 Pantoprazole Sodium (Protonix Iv) 40 mg IVPUSH Q24H [facility] Last Admin: 09/10/17 01:18 Dose: 40 mg Propofol (Diprivan 20 Ml) Confirm Administered Dose 200 mg .ROUTE .STK-MED ONE Stop: 09/09/17 10:06 Rocuronium [place] (Zemuron) Confirm Administered Dose 50 mg .ROUTE .STK-MED ONE Stop: 09/09/17 10:06 Rocuronium [place] (Zemuron) Confirm Administered Dose 50 mg .ROUTE .STK-MED ONE Stop: 09/09/17 16:03 Scopolamine (Transderm-Scop) 1.5 mg TOP ONETIME ONE Stop: 09/09/17 20:01 Last Admin: 09/09/17 21:47 Dose: 1.5 mg Sodium Chloride (Saline Flush) 10 ml FLUSH ASDIRECTED PRN PRN Reason: Keep Vein Open Last Admin: 09/08/17 19:07 Dose: 10 ml Succinylcholine Chloride (Quelicin) Confirm Administered Dose 200 mg .ROUTE .STK -MED ONE Stop: 09/09/17 10:06 - Exam General: Alert, Oriented Lungs: Clear to Auscultation, Normal Respiratory Effort Cardiovascular: Regular Rate, Regular Rhythm Extremities: Normal Inspection, Normal Range of Motion, Non-Tender, No Pedal Edema, Normal Capillary Refill Peripheral Pulses: 1+: Radial (L), Radial (R) Psy/Mental Status: Alert, Normal Affect, Normal Mood - Problem List Review Problem List Initiated/Reviewed/Updated: Yes - Plan Plan:: Assessment?plan; #1. Abd. Wall hernia with obstruction. Recovering slowly but stable. #2. Depression: Continue with Seroquel. #3. Obesity Labs ok. has a low grade fever. TSH has been normal last year.
[2017-09-10] MEDS: Pantoprazole 40 MG Vial IVPUSH SCH (21:19)
[2017-09-11] MEDS: Dextrose 5%-Lactated Ringers 1,000 ML IV SCH ×2 (07:55→16:45)
[2017-09-11] MEDS: QUEtiapine 25 MG Tab PO SCH (08:50)
[2017-09-11] MEDS: Gabapentin 300 MG Cap PO SCH (08:50)
[2017-09-11] MEDS: Sennosides 8.6 MG Tab PO SCH ×2 (08:50→20:44)
[2017-09-11] MEDS: Bisacodyl 5 MG Tab PO SCH ×2 (08:50→20:44)
[2017-09-11] MEDS: VERIFY SCOP PATCH TOP SCH (08:51)
[2017-09-11] MEDS: Ondansetron 4 MG/2 ML SDV IVPUSH PRN (12:02)
--- NOTE | 2017-09-11 15:13 | PCM.PN ---
- General Info Date of Service: 09/11/17 Functional Status: Reports: Pain Controlled - Review of Systems General: Reports: Fever, Weakness, Fatigue HEENT: Reports: No Symptoms Pulmonary: Reports: No Symptoms Cardiovascular: Reports: No Symptoms Gastrointestinal: Reports: Abdominal Pain Genitourinary: Reports: No Symptoms Musculoskeletal: Reports: No Symptoms Skin: Reports: No Symptoms Neurological: Reports: No Symptoms Psychiatric: Reports: No Symptoms - Patient Data Vitals - Most Recent: Last Vital Signs Temp 100.8 F H 09/11/17 15:06 Pulse 88 09/11/17 14:01 Resp 18 09/11/17 14:01 BP 119/59 L 09/11/17 14:01 Pulse Ox 91 L 09/11/17 14:01 Weight - Most Recent: 268 lb 3.994 oz I&O - Last 24 Hours: Intake & Output 09/11/17 09/11/17 09/11/17 06:59 14:59 22:59 Intake Total 240 Output Total 200 500 Balance 40 -500 Med Orders - Current: Current Medications Bisacodyl (Dulcolax) 10 mg PO BID [facility] Last Admin: 09/11/17 08:50 Dose: 10 mg Cyclobenzaprine HCl (Flexeril) 10 mg PO Q8H PRN PRN Reason: Muscle Spasm Diphenhydramine HCl (Benadryl) 25 - 50 mg IVPUSH Q4H PRN PRN Reason: Itching Last Admin: 09/10/17 11:16 Dose: 50 mg Hydromorphone HCl (Dilaudid Counseling Center Director 15 Mg In Ns 30 Ml) 0 mg IV ASDIRECTED PRN; Protocol PRN Reason: PAIN Hydroxyzine HCl (Vistaril) 100 mg IM Q4H PRN PRN Reason: Pain Dextrose/Lactated Ringer's (Dextrose 5%-Lactated Ringers) 1,000 mls @ 100 mls/ hr IV ASDIRECTED [facility] Last Admin: 09/11/17 07:55 Dose: 100 mls/hr Naloxone HCl (Narcan) 0.1 mg IV ASDIRECTED PRN PRN Reason: decreased respiratory rate Verify Scop Patch 0 each TOP DAILY [facility] Last Admin: 09/11/17 08:51 Dose: Not Given Ondansetron HCl (Zofran) 4 mg IVPUSH Q4H PRN PRN Reason: Nausea/Vomiting Last Admin: 09/11/17 12:02 Dose: 4 mg Pantoprazole Sodium (Protonix Iv) 40 mg IVPUSH Q24H [facility] Last Admin: 09/10/17 21:19 Dose: 40 mg Quetiapine Fumarate (Seroquel) 25 mg PO DAILY [facility] Last Admin: 09/11/17 08:50 Dose: 25 mg Senna (Senna) 17.2 mg PO BID [facility] Last Admin: 09/11/17 08:50 Dose: 17.2 mg Discontinued Medications Acetaminophen (Tylenol Extra Strength) 1,000 mg PO NOW ONE Stop: 09/09/17 06:47 Last Admin: 09/09/17 06:55 Dose: 1,000 mg Ropivacaine 60 ml/Dexamethasone 8 mg/Epinephrine HCl 0.4 mg/ Sodium Chloride 17.6 ml 0 ml NERVRT ONETIME ONE Stop: 09/09/17 11:01 Last Admin: 09/09/17 15:00 Dose: 100 syringe Dexamethasone (Dexamethasone) Confirm Administered Dose 4 mg .ROUTE .STK-MED ONE Stop: 09/09/17 10:06 Fentanyl (Sublimaze) Confirm Administered Dose 250 mcg .ROUTE .STK-MED ONE Stop: 09/09/17 10:06 Fentanyl (Sublimaze) Confirm Administered Dose 250 mcg .ROUTE .STK-MED ONE Stop: 09/09/17 16:03 Gabapentin (Neurontin) 300 mg PO TID [facility] Last Admin: 09/11/17 08:50 Dose: 300 mg Glycopyrrolate (Robinul) Confirm Administered Dose 1 mg .ROUTE .STK-MED ONE Stop: 09/09/17 10:06 Hydromorphone HCl (Dilaudid) 1 mg IVPUSH ONETIME ONE Stop: 09/08/17 18:07 Last Admin: 09/08/17 18:15 Dose: 1 mg Hydromorphone HCl (Dilaudid) 0.5 mg IVPUSH ONETIME ONE Stop: 09/08/17 20:07 Last Admin: 09/08/17 20:13 Dose: 0.5 mg Hydromorphone HCl (Dilaudid Counseling Center Director 15 Mg In Ns 30 Ml) 15 mg IV ASDIRECTED [facility] PRN Reason: Protocol Last Admin: 09/08/17 22:08 Dose: 15 mg Sodium Chloride (Normal Saline) 1,000 mls @ 500 mls/hr IV ASDIRECTED [facility] Last Admin: 09/08/17 18:28 Dose: 500 mls/hr Sodium Chloride (Normal Saline) 80 mls @ 3 mls/sec IV ASDIRECTED [facility] Last Admin: 09/08/17 19:07 Dose: 3 mls/sec Lactated Ringer's (Ringers, Lactated) 1,000 mls @ 125 mls/hr IV ASDIRECTED [facility] Dextrose/Lactated Ringer's (Dextrose 5%-Lactated Ringers) 1,000 mls @ 150 mls/ hr IV ASDIRECTED [facility] Last Admin: 09/09/17 21:46 Dose: 150 mls/hr Lidocaine HCl/Dextrose (Lidocaine 2 Gm/D5w 500 Ml) 2 gm in 500 mls @ 30 mls/hr IV .[id number] [facility] PRN Reason: 2 MG/MIN Stop: 09/10/17 18:00 Last Admin: 09/10/17 07:37 Dose: 0 mg/min, 30 mls/hr Ketamine HCl 100 mg/ Sodium (Chloride) 100 mls @ 16 mls/hr IV ASDIRECTED [facility] Stop: 09/09/17 13:00 Cefoxitin Sodium 2 gm/ Sodium (Chloride) 50 mls @ 100 mls/hr IV ONCALL ONE Stop: 09/09/17 11:29 Last Admin: 09/09/17 14:25 Dose: 100 mls/hr Lactated Ringer's (Ringers, Lactated) Confirm Administered Dose 1,000 mls @ as directed .ROUTE .STK-MED ONE Stop: 09/09/17 15:11 Lactated Ringer's (Ringers, Lactated) Confirm Administered Dose 1,000 mls @ as directed .ROUTE .STK-MED ONE Stop: 09/09/17 17:51 Cefoxitin Sodium 2 gm/ Sodium (Chloride) 50 mls @ 100 mls/hr IV Q6H [facility] Stop: 09/10/17 18:29 Last Admin: 09/10/17 18:10 Dose: 100 mls/hr Dextrose/Lactated Ringer's (Dextrose 5%-Lactated Ringers) 1,000 mls @ 175 mls/ hr IV ASDIRECTED [facility] Last Admin: 09/10/17 04:59 Dose: 175 mls/hr Iopamidol (Isovue-300 (61%)) 150 ml IV . DIRECTED [facility] Last Admin: 09/08/17 19:07 Dose: 150 ml Ketamine HCl (Ketalar) 27 mg IV ONETIME ONE Stop: 09/09/17 11:01 Last Admin: 09/09/17 20:42 Dose: Not Given Lidocaine HCl (Xylocaine 2%) 122 mg IVPUSH ONETIME ONE Stop: 09/09/17 11:01 Last Admin: 09/09/17 20:41 Dose: Not Given Linezolid (Zyvox) 200 mg IRR .STK-MED ONE Stop: 09/09/17 17:06 Last Admin: 09/09/17 17:05 Dose: 200 mg Meropenem (Merrem) Confirm Administered Dose 500 mg .ROUTE .STK-MED ONE Stop: 09/09/17 13:23 Last Admin: 09/09/17 15:25 Dose: 500 mg Neostigmine Methylsulfate (Neostigmine) Confirm Administered Dose 5 mg .ROUTE .STK-MED ONE Stop: 09/09/17 10:06 Ondansetron HCl (Zofran) 4 mg IVPUSH ONETIME ONE Stop: 09/08/17 17:59 Last Admin: 09/08/17 20:15 Dose: Not Given Ondansetron HCl (Zofran) Confirm Administered Dose 4 mg .ROUTE .STK-MED ONE Stop: 09/08/17 17:59 Last Admin: 09/08/17 20:15 Dose: Not Given Ondansetron HCl (Zofran) Confirm Administered Dose 4 mg .ROUTE .STK-MED ONE Stop: 09/09/17 10:06 Pantoprazole Sodium (Protonix Iv) 40 mg IVPUSH Q24H [facility] Last Admin: 09/10/17 01:18 Dose: 40 mg Propofol (Diprivan 20 Ml) Confirm Administered Dose 200 mg .ROUTE .STK-MED ONE Stop: 09/09/17 10:06 Rocuronium [place] (Zemuron) Confirm Administered Dose 50 mg .ROUTE .STK-MED ONE Stop: 09/09/17 10:06 Rocuronium [place] (Zemuron) Confirm Administered Dose 50 mg .ROUTE .STK-MED ONE Stop: 09/09/17 16:03 Scopolamine (Transderm-Scop) 1.5 mg TOP ONETIME ONE Stop: 09/09/17 20:01 Last Admin: 09/09/17 21:47 Dose: 1.5 mg Sodium Chloride (Saline Flush) 10 ml FLUSH ASDIRECTED PRN PRN Reason: Keep Vein Open Last Admin: 09/08/17 19:07 Dose: 10 ml Succinylcholine Chloride (Quelicin) Confirm Administered Dose 200 mg .ROUTE .STK -MED ONE Stop: 09/09/17 10:06 - Exam General: Alert, Oriented Neck: Supple Lungs: Clear to Auscultation, Normal Respiratory Effort Cardiovascular: Regular Rate, Regular Rhythm GI/Abdominal Exam: Tender Extremities: Normal Inspection, Normal Range of Motion, Non-Tender, No Pedal Edema, Normal Capillary Refill Peripheral Pulses: 1+: Radial (L), Radial (R) Skin: Warm, Dry, Intact Neurological: No New Focal Deficit - Problem List Review Problem List Initiated/Reviewed/Updated: Yes - Plan Plan:: Assessment?plan; #1. Abd. Wall hernia with obstruction. Recovering slowly but stable. WBC 9.9 #2. Depression: Continue with Seroquel. sTABLE #3. Obesity Labs ok. has a low grade fever. medically stable no acute findings.
[2017-09-11] MEDS: Pantoprazole 40 MG Vial IVPUSH SCH (21:00)
[2017-09-12] MEDS: Dextrose 5%-Lactated Ringers 1,000 ML IV SCH ×2 (02:30→12:53)
[2017-09-12] MEDS: Acetaminophen 325 MG Tab PO PRN ×2 (07:39→20:46)
[2017-09-12] MEDS ORDERED: Bisacodyl 10 MG Supp RECTAL ONE (09:00)
[2017-09-12] MEDS ORDERED: Erythromycin Base 250 MG Cap.CR PO SCH (09:00)
[2017-09-12] MEDS: Bisacodyl 5 MG Tab PO SCH ×2 (09:02→20:41)
[2017-09-12] MEDS: Sennosides 8.6 MG Tab PO SCH ×2 (09:04→20:41)
[2017-09-12] MEDS: QUEtiapine 25 MG Tab PO SCH (09:04)
[2017-09-12] MEDS: VERIFY SCOP PATCH TOP SCH (09:05)
[2017-09-12] MEDS: Ondansetron 4 MG/2 ML SDV IVPUSH PRN (11:21)
[2017-09-12] MEDS ORDERED: Bisacodyl 10 MG Supp RECTAL PRN (15:00)
[2017-09-12] MEDS ORDERED: Lidocaine 2% 30 ML, Alum Hydrox/Mag Hydrox/Simeth 30 ML, diphenhydrAMINE 75 MG PO PRN ×3 (17:04)
[2017-09-12] MEDS ORDERED: Aluminum Hydroxide/Magnesium Hydroxide/Simethicone Susp 30 ML Cup ONE (17:39)
[2017-09-12] MEDS ORDERED: Lidocaine 2% Viscous Solution 15 ML Cup ONE (17:39)
[2017-09-12] MEDS ORDERED: Ondansetron 4 MG Tab.DIS PO PRN (20:58)
[2017-09-13] MEDS ORDERED: Acetaminophen/oxyCODONE 325-5 MG Tab PO SCH
[2017-09-13] MEDS ORDERED: Ondansetron 4 MG Tab.DIS PO SCH
[2017-09-13] MEDS: Acetaminophen/oxyCODONE 325-5 MG Tab PO PRN ×3 (02:58→12:23)
[2017-09-13] MEDS: Sennosides 8.6 MG Tab PO SCH (08:37)
[2017-09-13] MEDS: VERIFY SCOP PATCH TOP SCH (08:37)
[2017-09-13] MEDS: QUEtiapine 25 MG Tab PO SCH (08:38)
[2017-09-13 09:13] VITALS: BP 114/69
--- NOTE | 2017-09-13 10:13 | OR ---
DATE OF PROCEDURE: 09/09/2017 PREOPERATIVE DIAGNOSIS: Multifocal incarcerated recurrent incisional hernia. POSTOPERATIVE DIAGNOSES: 1. Multifocal incarcerated recurrent incisional hernia. 2. Recurrent incarcerated umbilical hernia. 3. Extensive intraabdominal adhesions associated with areas of deserosalization of small bowel. OPERATIVE PROCEDURE: Exploratory laparotomy with lysis of extensive adhesions and: 1. Repair of recurrent incarcerated incisional hernia and recurrent incarcerated umbilical hernias with mesh ([id number], [id number]) ([id number]). 2. Repair of area of deserosalization of the small bowel ([id number]). 3. Placement of Vicryl mesh to displace small bowel from pelvic and abdominal dominguez to limit recurrent adhesion formation ([id number]). ANESTHESIA: General. ETL LEAD: Marta Bee PA-C. INDICATIONS FOR PROCEDURE: This is a 57-year-old admitted overnight with an incarcerated multifocal incisional hernia. This has been repaired multiple times in the past. Plan is to proceed with an open repair most likely with mesh. Potential risks of the procedure including bleeding, infection, possible injury to underlying viscera, possible need for bowel resection, the possibility that the mesh becoming infected and/or the hernia does recur along with the remote possibility of cardiopulmonary, septic, or hemorrhagic complications leading to were discussed, and the patient wishes to proceed. DETAILS OF PROCEDURE: The patient were taken to the operating room and placed in a supine position. After general endotracheal anesthesia was induced, a Villatoro catheter was inserted and the abdomen prepped and draped. A midline incision was then made and carried down through the skin and subcutaneous tissue. This extended from slightly below the xiphoid to fairly close down in the pubis. This was carried down through the skin and subcutaneous tissue. In the mid area to the right and somewhat superior to the umbilicus, the initial area of herniation was encountered. This area was then opened at the peritoneal level and the incarcerated small bowel was dissected free from that area. The patient was noted to have 2 additional hernias, one large suprapubic hernia and then a 2nd hernia extending to the left of the midline in the mid to lower abdomen. These hernias were over time progressively dissected free from incarcerated contents. Apart from that, there were quite extensive abdominal adhesions per se. One area of the small bowel was significantly deserosalized, but without full-thickness enterotomy. This was repaired with a transversely oriented firing of the MAL bee load and that staple line then being reinforced with 3-0 Vicryl seromuscular stitch. With no true contamination, it was felt that we still will be able to place the mesh. The patient was also noted to have a recurrent umbilical hernia that contained some omentum and bowel within it as well, and this was likewise freed up of its attachments. At this point, a Ventrio ST hernia patch measuring 27 x 32 cm was selected at roughly 5 cm intervals along its circumference. A 2-0 Vicryl sutures were placed on the polypropylene side of the incision. The point where the sutures would be pulled up was then marked on the skin. A small stab wound was made at each location. The mesh was then soaked in antibiotic- containing saline solution. The lower half of the sutures were then placed up positioning the mesh initially and let them there to limit recurrent adhesion formation. A 12-inch square area of Vicryl mesh was then placed down in the depths of the pelvis along the pelvic sidewalls and up against the abdominal wall. The remainder of the mesh attachments attached to sutures were then pulled up and the mesh was felt to be in good position. The shelf of the mesh on its underside was then stapled with titanium tacking screws to the abdominal wall circumference as well. At that point, no further problems noted. The midline fascia was approximated with a #2 Vicryl stitch. The subcutaneous tissue was then approximated with 2 layers of 3-0 Vicryl stitch and the skin with jeremiah. The patient was taken to the recovery room in satisfactory condition. There were no complications. Physician psychiatric nursing assistant, Marta Bee, played an essential role in assisting in this case, helping to position the patient, retract structures as needed, as well as suturing and cutting sutures when indicated. Her presence improved patient safety and decreased the operative time. Vic Sneed MD /[id number]
--- NOTE | 2017-09-13 10:58 | PN ---
DATE OF SERVICE: 09/10/2017 The patient has been afebrile with stable vital signs. Urine output has been satisfactory and pain control appears to be adequate. Continue with lidocaine infusion for the daytime ending this around 6 p.m. tonight. Otherwise, maximize activity, work on pulmonary toilet, and Villatoro catheter, come off these and decrease the IV rate. I will keep her n.p.o. except ice chips and medications for the time being, given the extent of the bowel resection. Vic Sneed MD /[id number]
--- NOTE | 2017-09-13 14:08 | DISCH ---
FINAL DIAGNOSES: 1. Multifocal incarcerated recurrent incisional hernia. 2. Recurrent incarcerated umbilical hernia. 3. An area of deserosalization of small bowel with extensive intra-abdominal adhesions. SECONDARY DIAGNOSES: 1. Obesity. 2. History of depression. 3. History of gastroesophageal reflux disease. OPERATIVE PROCEDURE: This was done on 09/09/2017: Exploratory laparotomy with lysis of extensive adhesions, and 1. Repair of incarcerated recurrent incisional hernia and recurrent incarcerated umbilical hernias with mesh. 2. Repair of a deserosalization of small bowel. 3. Placement of Vicryl mesh to displace the viscera from pelvic and abdominal wall to limit recurrent adhesion formation. SUMMARY: This 57-year-old is presenting with an obstructive pattern related to recurrent multifocal abdominal wall hernia. This included three separate incisional hernias along with umbilical hernia, all of which had incarcerated small bowel within them. After initial stabilization, the patient was taken to the operating room and underwent quite extensive lysis of adhesions, at one point there was an area of deserosalization but no full-thickness enterotomy. This was repaired with jeremiah and sutures and thereafter a large mesh placed covering all the hernias and postoperatively, the patient took a while for this to resolve as expected with the amount of dissection and is presently moving her bowels and tolerating a regular diet. She will be sent home with her usual medications plus Percocet 5/325 mg 1 to 2 tabs q.4 hours p.r.n. pain #[address] and follow up [address] Sneed at [facility] on 09/22/2017. The patient has morbid obesity with a weight of 268 pounds and a height of 5 feet 4 inches and at this point is interested in pursuing attempts at weight loss including probable surgical intervention. She will be seen by one of the dietitians at the time of appointment on 09/22, to initiate that process. She might be a good one to begin with a nonsurgical weight loss program if her insurance is not a Care Plan from [facility] which probably does not cover bariatric surgery. That is also something that could be worked on over time in terms of getting alternate insurance sources.
--- NOTE | 2017-09-15 08:22 | PN ---
DATE OF SERVICE: 09/11/2017 The patient has been afebrile with stable vital signs. Feeling a little bit more comfortable today. She was a little bit confused overnight, and the thought is it might be related to the gabapentin. We will wait to see if the confusion recurs with the next dose, before stopping it. Otherwise, we will begin some bowel stimulation and maximize activity. We will have her get in the shower today, and then maintain some focussed pressure over the lower abdomen under the binder. Vic Sneed MD /[id number]
--- NOTE | 2017-09-15 08:25 | PN ---
DATE OF SERVICE: 09/12/2017 The patient had a temperature up to 102 yesterday. It appears to most likely be pulmonary and does come down with activity. She is having some burping and feels like she might have to move her bowels, but no real flatus or bowel movement as of yet. She will have some erythromycin to augment GI tract motility today, will have Dulcolax suppository and continue Dulcolax oral tablets on a scheduled basis. Once she moves her bowels, then we can begin enhancing the diet. Vic Sneed MD /[id number]
== END 2017-09-13 12:30 | disposition home or self-care (01) | DRG 330 ==
LOC: JP.ED 17:49 → JP.MS 20:46
PROVIDERS: ADMIT Internal Medicine; ATTEND Internal Medicine
PROC: 0DQE0ZZ Repair Large Intestine, Open Approach (ICD-10-PCS; principal; 2017-09-09)
PROC: 0WUF0JZ Supplement Abdominal Wall with Synthetic Substitute, Open Approach (ICD-10-PCS; principal; 2017-09-09)
PROC: 0WUF0JZ Supplement Abdominal Wall with Synthetic Substitute, Open Approach (ICD-10-PCS; 2017-09-09)
PROC: 3E0M05Z Introduction of Adhesion Barrier into Peritoneal Cavity, Open Approach (ICD-10-PCS; 2017-09-09)
DX: K43.0 Incisional hernia with obstruction, without gangrene (principal); K56.51 Intestinal adhesions [bands], with partial obstruction; K55.8 Other vascular disorders of intestine; K42.0 Umbilical hernia with obstruction, without gangrene; E66.9 Obesity, unspecified; Z68.39 Body mass index [BMI] 39.0-39.9, adult; F32.9 Major depressive disorder, single episode, unspecified; H54.7 Unspecified visual loss; Z87.891 Personal history of nicotine dependence; Z88.2 Allergy status to sulfonamides; Z88.8 Allergy status to other drugs, medicaments and biological substances
CPT/HCPCS: 36415; 74177; 80048; 80053; 81001; 82150; 83690; 83735; 84100; 85025; 85027; 88302; 88305; 93005; 94762; 96361; 96374; 96376; 99285-25; A9270-GY; C1781; C9113; J0171; J0330; J0694; J1100; J1170; J1200; J2001; J2020; J2185; J2405; J2704; J2710; J2795; J3010; J7030; J7040; J7042; J7050; J7120

== ENCOUNTER 2021-03-17 09:27 | Observation (INO) | payer OTHER ==
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
[2021-03-17] MEDS ORDERED: Sodium Chloride 0.9% 1,000 ML IV SCH (10:15)
[2021-03-17] MEDS ORDERED: Iopamidol 612 MG/ML 100 ML Bottle IV PRN (10:40)
[2021-03-17] MEDS ORDERED: Sodium Chloride 0.9% 80 ML IV ONE (10:40)
[2021-03-17] MEDS ORDERED: HYDROmorphone 1 MG/ML Syringe IM ONE (11:11)
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
[2021-03-17] MEDS ORDERED: Ondansetron 4 MG/2 ML SDV IVPUSH ONE (14:33)
[2021-03-17] MEDS ORDERED: Ondansetron 4 MG/2 ML SDV IV PRN (14:51)
[2021-03-17] MEDS ORDERED: LORazepam 2 MG/ML SDV IVPUSH PRN (14:51)
[2021-03-17] MEDS ORDERED: Lactated Ringers 1,000 ML IV SCH (14:51)
[2021-03-17] MEDS ORDERED: Ondansetron 4 MG Tab.DIS PO PRN (14:51)
[2021-03-17] MEDS ORDERED: Magnesium Hydroxide 400 MG/5 ML Susp 30 ML Cup PO PRN (14:51)
[2021-03-17] MEDS: oxyCODONE 5 MG Tab PO PRN ×2 (15:08→18:43)
[2021-03-17] MEDS: Acetaminophen 500 MG Tab PO SCH ×2 (15:09→20:25)
[2021-03-17] MEDS: Pantoprazole 40 MG Tab.CR PO SCH (16:58)
[2021-03-17] MEDS: QUEtiapine 25 MG Tab PO SCH (16:58)
[2021-03-17] MEDS: Sucralfate 1 GM Tab PO SCH ×2 (16:58→20:25)
[2021-03-17] MEDS: HYDROmorphone 1 MG/ML Syringe IVPUSH PRN (20:28)
[2021-03-18] MEDS: oxyCODONE 5 MG Tab PO PRN ×5 (01:09→19:54)
[2021-03-18] MEDS: Sucralfate 1 GM Tab PO SCH ×4 (07:52→19:53)
[2021-03-18] MEDS: Acetaminophen 500 MG Tab PO SCH ×3 (08:46→21:45)
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
[2021-03-18] MEDS: QUEtiapine 25 MG Tab PO SCH (11:56)
[2021-03-18] MEDS: Pantoprazole 40 MG Tab.CR PO SCH (11:56)
[2021-03-18] MEDS: HYDROmorphone 1 MG/ML Syringe IVPUSH PRN (11:57)
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
[2021-03-18] MEDS: tiZANidine 2 MG Tab PO PRN ×2 (15:34→21:45)
[2021-03-19] MEDS: Sucralfate 1 GM Tab PO SCH ×4 (07:55→20:07)
[2021-03-19] MEDS: Acetaminophen 500 MG Tab PO SCH ×3 (08:00→20:07)
[2021-03-19] MEDS: tiZANidine 2 MG Tab PO PRN ×2 (08:05→14:31)
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
[2021-03-19] MEDS: oxyCODONE 5 MG Tab PO PRN ×3 (11:03→23:17)
[2021-03-19] MEDS: QUEtiapine 25 MG Tab PO SCH (11:06)
[2021-03-19] MEDS: Pantoprazole 40 MG Tab.CR PO SCH (11:06)
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
[2021-03-20] MEDS: tiZANidine 2 MG Tab PO PRN ×4 (01:15→20:12)
[2021-03-20] MEDS: oxyCODONE 5 MG Tab PO PRN ×5 (03:34→20:12)
[2021-03-20] MEDS: Sucralfate 1 GM Tab PO SCH ×4 (07:38→20:12)
[2021-03-20] MEDS: Acetaminophen 500 MG Tab PO SCH ×3 (09:32→21:44)
[2021-03-20] MEDS: Pantoprazole 40 MG Tab.CR PO SCH (12:39)
[2021-03-20] MEDS: QUEtiapine 25 MG Tab PO SCH (12:39)
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
[2021-03-20] MEDS: Ibuprofen 600 MG Tab PO PRN (17:05)
[2021-03-21] MEDS: Ibuprofen 600 MG Tab PO PRN (00:18)
[2021-03-21] MEDS: oxyCODONE 5 MG Tab PO PRN ×4 (00:19→14:10)
[2021-03-21] MEDS: tiZANidine 2 MG Tab PO PRN ×3 (02:50→14:38)
[2021-03-21] MEDS: Sucralfate 1 GM Tab PO SCH ×2 (08:08→12:06)
[2021-03-21] MEDS: Acetaminophen 500 MG Tab PO SCH ×2 (08:56→14:10)
[2021-03-21] MEDS ORDERED: Bisacodyl 5 MG Tab PO ONE (10:00)
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
[2021-03-21 11:56] VITALS: BP 124/72; PULSE 62
[2021-03-21] MEDS: Pantoprazole 40 MG Tab.CR PO SCH (12:06)
[2021-03-21] MEDS: QUEtiapine 25 MG Tab PO SCH (12:06)
== END 2021-03-21 16:15 | disposition home or self-care (01) ==
LOC: JP.ED 09:27 → JP.ICU 09:30
PROVIDERS: ADMIT Internal Medicine; ATTEND Internal Medicine
DX: S22.41XA Multiple fractures of ribs, right side, initial encounter for closed fracture (principal); S62.102A Fracture of unspecified carpal bone, left wrist, initial encounter for closed fracture; S30.1XXA Contusion of abdominal wall, initial encounter; S80.11XA Contusion of right lower leg, initial encounter; E66.9 Obesity, unspecified; Z79.899 Other long term (current) drug therapy; Z88.2 Allergy status to sulfonamides; Z88.8 Allergy status to other drugs, medicaments and biological substances; G47.30 Sleep apnea, unspecified; Z68.41 Body mass index [BMI] 40.0-44.9, adult; V89.2XXA Person injured in unspecified motor-vehicle accident, traffic, initial encounter
CPT/HCPCS: 36415; 71260; 73110; 73560; 73590; 74177; 80048; 82150; 83690; 85025; 96372; 96374; 96375; 96376; 97110; 97161; 97165; 97530; 97535; 99285; A9270; G0378; J1170; J2405; J7030; J7120; Q9967